=== PATIENT | male | born 1990 | race Caucasian/White ===

== ENCOUNTER 2019-09-23 08:27 | Emergency (ER) | payer OTHER ==
[~2019-09-23] VITALS: Ht 177.8 cm; Wt 88.5 kg
[~2019-09-23 08:27] MED LIST: IMITREX50 MG PO; TUSSI PRES-B L120 M1 PO; ZITHROMAX TRI-500 MG PO
[2019-09-23] MEDS ORDERED: INTESTINEX680 M1 PO (12:17)
[2019-09-23] MEDS ORDERED: PROTONIX40 MG PO (12:17)
== END 2019-09-23 12:36 | disposition home or self-care (01) ==
LOC: ER 08:27
DX: R51 Headache (principal); R11.10 Vomiting, unspecified; Z20.828 Contact with and (suspected) exposure to other viral communicable diseases